=== PATIENT | female | born 1970 ===

== ENCOUNTER 2017-01-30 08:22 | Observation (INO) | payer OTHER ==
[~2017-01-30] VITALS: Ht 170.2 cm; Wt 65.8 kg
[2017-01-30] VITALS (10 sets, daily range): BP systolic 103–155; BP diastolic 63–92
[~2017-01-30 08:22] MED LIST: Pantoprazole Inj IVP ONE; Vancomycin 1gm/D5W 275ml IVPB ONE
[2017-01-30] MEDS ORDERED: LEVOTHYROXINE75 MCG ORAL (09:54)
[2017-01-30] MEDS ORDERED: VENLAFAXINE HCL25 MG ORAL (09:54)
[2017-01-30] MEDS ORDERED: CYTOMEL5 MCG ORAL (09:54)
[2017-01-30] MEDS ORDERED: Thrombin 5000 units TOPIC ONE (09:57)
[2017-01-30] MEDS ORDERED: Bupivacaine w/Epi 0.5% 30ml Vial INJ ONE (09:58)
[2017-01-30] MEDS ORDERED: Gelfoam Absorbable 1gm powder pkt TOPIC ONE (09:58)
[2017-01-30] MEDS ORDERED: Thrombin 5000 units spray kit TOPIC ONE (09:58)
[2017-01-30] MEDS ORDERED: Bacitracin 50000 Units Vial ONE (09:59)
[2017-01-30] MEDS ORDERED: LR 1000ml 1,000 ML IVLG SCH (11:48)
--- NOTE | 2017-01-30 11:48 | Anethesia Preoperative Eval ---
Anesthesia Pre-op PMH/ROS General Date of Evaluation: Jan 30, 2017 Time of Evaluation: 12:44 Anesthesiologist: Donna ASA Score: ASA 2 Mallampati Score Class I : Soft palate, uvula, fauces, pillars visible Class II: Soft palate, uvula, fauces visible Class III: Soft palate, base of uvula visible Class IV: Only hard plate visible Mallampati Classification: Class II Surgeon: Latia Diagnosis: Neck Pain Surgical Procedure: ACDF C5-6, C6-7 Anesthesia History: none Family History: no anesthesia problems Allergies: Coded Allergies: No Known Allergies (Unverified , 01/30/17) Medications: see eMAR Past Medical History Cardiovascular: Reports: HTN Endocrine: Reports: hypothyroidism PSxH Narrative: D&C, LUKE, Ectopic Preg SX Anesthesia Pre-op Phys. Exam Physician Exam Last Vital Signs Date Time Temp Pulse Resp B/P (MAP) Pulse Ox O2 Delivery O2 Flow Rate FiO2 01/30/17 09:07 98.6 74 17 146/90 99 Room Air Constitutional: NAD Neurologic: CN 2-12 intact Cardiovascular: RRR Respiratory: CTA Gastrointestinal: S/NT/ND Airway Exam Mallampati Score: Class II MO: full ROM: limited Teeth: intact Anesthesia Pre-op A/P Risk Assessment & Plan Assessment: ASA 2 Plan: GA, BIS, Glidescope Status Change Before Surgery: No Pre-Antibiotics Dru Gram Vancomycin, 80 mg Gentamicin IV Given Within 1 Hr of Incision: Yes Time Given: 12:45 Fredy Thompson MD Jan 30, 2017 11:47
--- NOTE | 2017-01-30 11:52 | Immediate Post-Op Evaluation ---
Immediate Post-Op Evalulation Immediate Post-Op Evalulation Procedure: ACDF C5-6, C6-7, Iliac Graft Date of Evaluation: Jan 30, 2017 Time of Evaluation: 16:40 IV Fluids: 1100 LR Blood Products: 0 Estimated Blood Loss: 50 Urinary Output: 0 Blood Pressure Systolic: 171 Blood Pressure Diastolic: 79 Pulse Rate: 91 Respiratory Rate: 16 O2 Sat by Pulse Oximetry: 94 Temperature (Fahrenheit): 97.3 Pain Score (1-10): 3 Nausea: No Vomiting: No Complications 0 Patient Status: awake, reacts, patent, extubated, none Hydration Status: adequate Dru Gram Vancomycin, 80 mg Gentamicin IV Given Within 1 Hr of Incision: Yes Time Given: 12:45 Fredy Thompson MD Jan 30, 2017 11:52
[2017-01-30] MEDS ORDERED: fentaNYL 100 mcg/2 mL IV PRN (12:00)
[2017-01-30] MEDS ORDERED: Meperidine 25mg/0.5ml Inj (FOR RIGORS ONLY) IV PRN (12:00)
[2017-01-30] MEDS ORDERED: Norco 5mg/325mg tab ORAL PRN (12:00)
[2017-01-30] MEDS ORDERED: Norco 7.5mg/325mg tab ORAL PRN ×2 (12:00→17:00)
[2017-01-30] MEDS ORDERED: Hydromorphone 0.5mg/0.5ml inj IVP PRN (12:00)
[2017-01-30] MEDS ORDERED: oxyCODONE HCL/Acetaminophen 5/325mg ORAL PRN (12:00)
[2017-01-30] MEDS ORDERED: DiphenhydrAMINE 50mg/ml Inj IVP PRN (12:00)
[2017-01-30] MEDS ORDERED: Metoclopramide 10mg/2ml Inj IVP PRN (12:00)
[2017-01-30] MEDS ORDERED: LORazepam Inj 2mg/ml 1ml IV PRN (12:00)
[2017-01-30] MEDS ORDERED: Atropine Inj 1mg/10ml Syr IV PRN (12:00)
[2017-01-30] MEDS ORDERED: Ketorolac 60mg Inj IV PRN (12:00)
[2017-01-30] MEDS ORDERED: Ketorolac 30mg Inj IV PRN (12:00)
[2017-01-30] MEDS ORDERED: Midazolam 2mg/2ml Inj IVP PRN (12:00)
[2017-01-30] MEDS ORDERED: LR 1000ml ONE (12:45)
[2017-01-30] MEDS ORDERED: Zemuron 50mg/5ml Inj IV ONE (12:45)
[2017-01-30] MEDS ORDERED: Lidocaine 1% MPF 10mg/ml 5ml ONE (12:45)
[2017-01-30] MEDS ORDERED: NS Irrig 1000ml ONE (12:45)
[2017-01-30] MEDS ORDERED: Propofol 1,000mg/ 100ml btl IV ONE (12:45)
[2017-01-30] MEDS ORDERED: Lidocaine 1% Plain 30 ml INJ ONE (12:45)
[2017-01-30] MEDS ORDERED: Sterile Water Irrig 1000ml IRRIG ONE (12:45)
[2017-01-30] MEDS ORDERED: fentaNYL 100 mcg/2 mL IV ONE (12:45)
[2017-01-30] MEDS ORDERED: Acetaminophen (Non formulary) 100 ML IV ONE (13:00)
--- NOTE | 2017-01-30 16:44 | Pre-Procedure Note/Attestation ---
Pre-Procedure Note/Attestation Complete Prior to Procedure Planned Procedure: bilateral Procedure Narrative: Anterior cervical discectomy and arthroplasty at C5-6 and C6-7 levels versus possible anterior cervical discectomy and fusion with autograft, allograft, and iliac crest bone marrow aspiration Attestation I attest that I discussed the nature of the procedure; its benefits; risks and complications; and alternatives (and the risks and benefits of such alternatives ), prior to the procedure, with the patient (or the patient's legal credit resolution representative). I attest that, if there was a reasonable possibility of needing a blood transfusion, the patient (or the patient's legal credit resolution representative) was given the [place] [facility] standardized written summary, pursuant to the Saul Tanya Blood Safety Act ([place] Health and Safety Code # 1645, as amended). I attest that I re-evaluated the patient just prior to the surgery and that there has been no change in the patient's H&P, except as documented below: CALLI RECIO Jan 30, 2017 16:44
--- NOTE | 2017-01-30 16:52 | Brief Operative Note ---
Immediate Post Operative Note Operative Note Chief Complaint: Neck pain and bilateral upper extremity radiating pain and weakness Pre-op Diagnosis: Post-traumatic discogenic neck pain C5-6 and C6-7 lack of improvement from conservative care and interventional pain injections Herniated disc and disc disruption at C5-6 and C6-7 levels. Procedure: 1. Right-sided retropharyngeal approach to the cervical spine 2. Total discectomies at C5-6 and C6-7 levels 3. Insertion of 5 x 15 x 15mm LDR Mobi-C disc at C5-6 and C6-7 levels 4. Bilateral neuroforaminotomies at C5-6 and C6-7 levels. 5. Intra-operative microdissection with use of operative microscope. 6. Supervision, use and interpretation of fluoroscopy for localization and spinal instrumentation 7. Plastic surgical closure of cervical wound 6-cm. 8. Intra-operative neuromonitoring with SSEPs and DEPs. Post-op Diagnosis: same as pre-op Findings: consistent w/pre-op dx studies Surgeon: Fer Jeffery MD Heat Treater Helper: Tyrese Lawrence MD Anesthesiologist: Dr. Thompson Anesthesia: general Specimen: yes - disc Complications: none Condition: stable Fluids: 1000 crstalloids Estimated Blood Loss: minimal Drains: none Implant(s) used?: Yes - LDR MOBI-C x2 FER JEFFERY Jan 30, 2017 16:52
--- NOTE | 2017-01-30 16:54 | General Progress Note ---
Progress Note Progress Note Neurosurgery Post-op S/ Comfortable no arm pain O/ Vs. Last 24 Hour Vital Signs Date Time Temp Pulse Resp B/P (MAP) Pulse Ox O2 Delivery O2 Flow Rate FiO2 01/30/17 16:30 91 16 94 01/30/17 09:07 98.6 74 17 146/90 99 Room Air Alert and appropriate Moves all extremities well normal sensation in all extremities. Dressing dry In Soft collar. CALLI RECIO Jan 30, 2017 16:54
[2017-01-30] MEDS ORDERED: Milk of Magnesia 30ml Ud ORAL PRN (17:00)
[2017-01-30] MEDS ORDERED: HYDROmorphone 1mg/ml Carpuject IVP PRN (17:00)
[2017-01-30] MEDS ORDERED: Docusate 100mg cap ORAL SCH (18:00)
[2017-01-30] MEDS ORDERED: Venlafaxine 25mg tab ORAL SCH (18:00)
[2017-01-30] MEDS: Docusate 100mg cap ORAL SCH (20:40)
[2017-01-30] MEDS: Norco 7.5mg/325mg tab ORAL PRN (20:40)
[2017-01-30] MEDS: D5 1/2NS 1,000 ML IV SCH (20:40)
[2017-01-30] MEDS: Pericolace tab ORAL SCH (20:44)
[2017-01-30] MEDS ORDERED: Venlafaxine HCl 37.5mg Tab ORAL SCH (21:00)
[2017-01-30] MEDS: Vancomycin 1 GM in D5W 275 ML IV SCH (21:00)
[2017-01-30] MEDS: Cyclobenzaprine 10mg Tab ORAL PRN (22:08)
--- NOTE | 2017-01-30 22:21 | General Progress Note ---
Assessment/Plan Status Narrative S/P CERVICAL FUSION HISTORY FO HYPOTHYROID HER THYROID MEDS WAS HELD SHE HAD IATROGENIC HYPERTHYROID PT OT DVT PROPHYALXIIS DOING WELL Subjective Date patient seen: Jan 30, 2017 Time patient seen: 22:20 Constitutional: Reports: no symptoms HEENT: Reports: no symptoms Cardiovascular: Reports: no symptoms Respiratory: Reports: no symptoms Allergies: Coded Allergies: No Known Allergies (Unverified , 01/30/17) Objective Last 24 Hour Vital Signs Date Time Temp Pulse Resp B/P (MAP) Pulse Ox O2 Delivery O2 Flow Rate FiO2 01/30/17 20:00 97.7 88 18 127/89 98 Nasal Cannula 3.0 01/30/17 18:30 98.1 90 20 123/82 96 Nasal Cannula 3.0 01/30/17 17:43 97.8 01/30/17 17:35 97.7 89 20 103/66 92 Nasal Cannula 3.0 01/30/17 17:30 97.8 92 19 117/63 95 Nasal Cannula 3.0 01/30/17 17:10 96 19 123/76 95 Nasal Cannula 3.0 01/30/17 16:55 98 19 131/82 95 Simple Mask 10.0 01/30/17 16:40 95 19 142/88 95 Simple Mask 10.0 01/30/17 16:35 98 19 155/92 95 Simple Mask 10.0 01/30/17 16:30 91 16 94 01/30/17 16:29 97.3 93 19 153/90 95 Simple Mask 10.0 01/30/17 09:07 98.6 74 17 146/90 99 Room Air Intake and Output 01/30/17 01/31/17 19:00 07:00 Intake Total 1300 ml 120 ml Output Total 700 ml Balance 600 ml 120 ml Intake Oral 120 ml IV Total 1300 ml Output Urine Total 650 ml Estimated Blood Loss 50 ml # Voids 1 Height (Feet): 5 Height (Inches): 7.00 Weight (Pounds): 145 General Appearance: WD/WN EENT: PERRL/EOMI Neck: other - she has a soft collar Cardiovascular: normal rate, regular rhythm, no JVD Respiratory/Chest: lungs clear Abdomen: soft CAYETANO SIMPSON Jan 30, 2017 22:21
[2017-01-31] VITALS: BP 133/85
[2017-01-31] MEDS: Norco 7.5mg/325mg tab ORAL PRN ×2 (03:04→10:57)
[2017-01-31 04:00] VITALS: BP 122/83
[2017-01-31] MEDS: D5 1/2NS 1,000 ML IV SCH (05:00)
[2017-01-31] MEDS: Cyclobenzaprine 10mg Tab ORAL PRN (05:47)
--- NOTE | 2017-01-31 06:33 | 48 Hour Post Anesthesia Eval ---
Post Anesthesia Evaluation Procedure: ACDF C5-6, C6-7 Date of Evaluation: Jan 31, 2017 Time of Evaluation: 06:32 Blood Pressure Systolic: 122 0: 83 Pulse Rate: 75 Respiratory Rate: 18 Temperature (Fahrenheit): 97.9 O2 Sat by Pulse Oximetry: 93 Airway: patent Nausea: No Vomiting: No Pain Intensity: 2 Hydration Status: adequate Cardiopulmonary Status: Stable Mental Status/LOC: patient returned to baseline Follow-up Care/Observations: 0 Post-Anesthesia Complications: 0 Follow-up care needed: ready to discharge Fredy Thompson MD Jan 31, 2017 06:33
[2017-01-31 08:00] VITALS: BP 120/79
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
[2017-01-31 08:08] LABS: ANION GAP 10 (5-15); CALCIUM 8.7 mg/dL (8.6-10.2); CARBON DIOXIDE 28 mEQ/L (20-30); CHLORIDE 99 mEQ/L (98-107); CREATININE 0.8 mg/dL (0.5-0.9); GLOMERULAR FILTRATION RATE > 60 mL/min (>60); HEMOLYSIS 1; MAGNESIUM 2.2 mg/dL (1.7-2.5); POTASSIUM 4.3 mEQ/L (3.4-4.9); SODIUM 137 mEQ/L (135-145)
--- NOTE | 2017-01-31 08:16 | General Progress Note ---
Assessment/Plan Status Narrative S/P ACDF HISTORY OF HYPOTHYROID WAS IATROGENIC HYPER [place] HER LABS ADN [facility] Subjective Date patient seen: Jan 31, 2017 Constitutional: Reports: no symptoms HEENT: Reports: no symptoms - HAS NECK OPAIN AND THORAT HURTS Allergies: Coded Allergies: No Known Allergies (Unverified , 01/30/17) Objective Last 24 Hour Vital Signs Date Time Temp Pulse Resp B/P (MAP) Pulse Ox O2 Delivery O2 Flow Rate FiO2 01/31/17 06:33 75 18 93 01/31/17 04:00 97.9 75 18 122/83 93 Room Air 01/31/17 00:00 97.7 83 18 133/85 95 Room Air 01/30/17 20:00 97.7 88 18 127/89 98 Nasal Cannula 3.0 01/30/17 18:30 98.1 90 20 123/82 96 Nasal Cannula 3.0 01/30/17 17:43 97.8 01/30/17 17:35 97.7 89 20 103/66 92 Nasal Cannula 3.0 01/30/17 17:30 97.8 92 19 117/63 95 Nasal Cannula 3.0 01/30/17 17:10 96 19 123/76 95 Nasal Cannula 3.0 01/30/17 16:55 98 19 131/82 95 Simple Mask 10.0 01/30/17 16:40 95 19 142/88 95 Simple Mask 10.0 01/30/17 16:35 98 19 155/92 95 Simple Mask 10.0 01/30/17 16:30 91 16 94 01/30/17 16:29 97.3 93 19 153/90 95 Simple Mask 10.0 01/30/17 09:07 98.6 74 17 146/90 99 Room Air Laboratory Tests 01/31/17 05:25: Sodium Level 137, Potassium Level 4.3, Chloride Level 99, Carbon Dioxide Level 28, Anion Gap 10, Blood Urea Nitrogen 8, Creatinine 0.8, Estimat Glomerular Filtration Rate > 60, Glucose Level 117H, Calcium Level 8.7, Magnesium Level 2.2 Height (Feet): 5 Height (Inches): 7.00 Weight (Pounds): 145 General Appearance: WD/WN Neck: other - WEARING SIOFT CERVICAL COLLAR Cardiovascular: normal rate, regular rhythm Respiratory/Chest: lungs clear Abdomen: soft CAYETANO SIMPSON Jan 31, 2017 08:16
[2017-01-31] MEDS: Pericolace tab ORAL SCH (08:19)
[2017-01-31] MEDS: Vancomycin 1 GM in D5W 275 ML IV SCH (08:20)
[2017-01-31] MEDS: Docusate 100mg cap ORAL SCH (08:20)
--- NOTE | 2017-01-31 09:24 | Diagnostic Imaging Report ---
Indication: Neck pain Technique: Digital intraoperative images Comparison: None Findings: Initial images demonstrate localizing tool projected lateral to C7 on the AP view, projected over the C6-7 disc on the lateral view. Subsequent images document placement of disc prostheses at C5-6 and C6-7 Impression: Intraoperative images, as described
[2017-01-31 12:00] VITALS: BP 126/78
--- NOTE | 2017-01-31 12:09 | General Progress Note ---
Progress Note Progress Note Neurosurgeru POD#1 s/p two level cervical ADR. doing well sore throat post-op improving. tolerating po's. ambulated with PT O/ VS Last 24 Hour Vital Signs Date Time Temp Pulse Resp B/P (MAP) Pulse Ox O2 Delivery O2 Flow Rate FiO2 01/31/17 08:00 98.1 77 18 120/79 97 Room Air 01/31/17 06:33 75 18 93 01/31/17 04:00 97.9 75 18 122/83 93 Room Air 01/31/17 00:00 97.7 83 18 133/85 95 Room Air 01/30/17 20:00 97.7 88 18 127/89 98 Nasal Cannula 3.0 01/30/17 18:30 98.1 90 20 123/82 96 Nasal Cannula 3.0 01/30/17 17:43 97.8 01/30/17 17:35 97.7 89 20 103/66 92 Nasal Cannula 3.0 01/30/17 17:30 97.8 92 19 117/63 95 Nasal Cannula 3.0 01/30/17 17:10 96 19 123/76 95 Nasal Cannula 3.0 01/30/17 16:55 98 19 131/82 95 Simple Mask 10.0 01/30/17 16:40 95 19 142/88 95 Simple Mask 10.0 01/30/17 16:35 98 19 155/92 95 Simple Mask 10.0 01/30/17 16:30 91 16 94 01/30/17 16:29 97.3 93 19 153/90 95 Simple Mask 10.0 Alert and oriented x 4 incision dry Moves all extremities well C-collar on doing well d/c planning d/c instruction reviewed with pt and nursing CALLI RECIO Jan 31, 2017 12:09
[2017-01-31] MEDS ORDERED: NORCO 10-325 T1 EACH ORAL (12:54)
[2017-01-31] MEDS ORDERED: CYCLOBENZAPRINE10 MG ORAL (12:54)
--- NOTE | 2017-02-01 06:15 | Discharge Summary ---
DATE OF ADMISSION: 01/30/2017 DATE OF DISCHARGE: 01/31/2017 Discharge Diagnosis: Status post anterior cervical disk replacement at C5-C6 and C6-C7 level. History Of Present Illness: Please refer to chart for detailed History and Physical. Hospital Course: The patient was admitted on 01/30/2017. She underwent an uneventful anterior cervical diskectomy, stabilization with disk replacement at C5-C6 and C6-C7 levels. The patient has done well postoperatively. She has been ambulating, tolerating p.o. pain medications, and food. She has been cleared by physical therapy. She is being discharged home with appropriate discharge instructions. DISPOSITION: Home. Discharge Instructions: The patient is instructed regarding wound care. In case of fever greater than 101, chills, and drainage from the incision, the patient is to contact Dr. Jeffery or go to the nearest ER. Diet: Soft diet for at least one week. The patient is asked to avoid hot beverages. Medications: Continue with home medications. The patient is also provided prescription for [place] and Flexeril. CONSULTATIONS: Included physical therapy. FOLLOWUP: Follow up in two weeks with Dr. Jeffery. COMPLICATIONS: None. Fer Jeffery M.D. DR: NELLY JOB#: [id number] CC:
== END 2017-01-31 13:20 | disposition home or self-care (01) ==
LOC: SUR 08:22 → EDSTATUS 12:30 → 3E 17:01 → UNDOADMOB 18:49
DX: M50.23 Other cervical disc displacement, cervicothoracic region (principal); R51 Headache; I10 Essential (primary) hypertension; E03.9 Hypothyroidism, unspecified; F32.9 Major depressive disorder, single episode, unspecified; M54.12 Radiculopathy, cervical region; Z90.710 Acquired absence of both cervix and uterus
CPT/HCPCS: 22856; 22858; 36415; 72040; 76001; 80048; 83735; 84443; 86850; 86900; 86901; 87081; 96360; 96361; 97110; 97116; 97161; 97530; C1889; C9113; G0378; J2001; J2405; J2704; J3010; J3370; J7120; 94003; 94150; C9399; J2180